=== PATIENT | female | born 1995 | race Two or more races ===

== ENCOUNTER 2020-11-03 15:47 | Emergency (ER) | payer OTHER ==
[~2020-11-03] VITALS: Ht 160 cm; Wt 81.6 kg
[2020-11-03 15:50] VITALS: BP 128/84
[2020-11-03] MEDS ORDERED: ACETAMINOPHEN 500 MG TAB PO ONE (18:00)
== END 2020-11-03 18:41 | disposition home or self-care (01) ==
LOC: ER 15:47
DX: S09.90XA Unspecified injury of head, initial encounter (principal); S00.01XA Abrasion of scalp, initial encounter; S20.219A Contusion of unspecified front wall of thorax, initial encounter; S93.401A Sprain of unspecified ligament of right ankle, initial encounter; V29.9XXA Motorcycle rider (driver) (passenger) injured in unspecified traffic accident, initial encounter; Y93.I9 Activity, other involving external motion; Y92.89 Other specified places as the place of occurrence of the external cause; Y99.8 Other external cause status
CPT/HCPCS: 70450; 71046; 73610